=== PATIENT | male | born 1960 | race African-American/Black ===

== ENCOUNTER 2017-08-08 20:34 | Emergency (ER) | payer BC | END 2017-08-08 22:30 | disposition home or self-care (01) | LOC: E/R 20:34 → FTE 22:30 | DX: S60.221A Contusion of right hand, initial encounter (principal); S63.501A Unspecified sprain of right wrist, initial encounter; W19.XXXA Unspecified fall, initial encounter; Y92.9 Unspecified place or not applicable; Z87.891 Personal history of nicotine dependence | CPT/HCPCS: 73110; 73110-RT; 73130-RT; 99283-25 ==

== ENCOUNTER 2018-12-30 05:23 | Emergency (ER) | payer BC ==
[2018-12-30] MEDS: HYDROCODONE/APAP (10/325) TAB PO (09:25)
== END 2018-12-30 12:16 | disposition home or self-care (01) ==
LOC: E/R 05:23
DX: S73.192A Other sprain of left hip, initial encounter (principal); F17.210 Nicotine dependence, cigarettes, uncomplicated; W11.XXXA Fall on and from ladder, initial encounter; Y92.89 Other specified places as the place of occurrence of the external cause
CPT/HCPCS: 72100; 73502; 73510; 73700; 73721; 99284-25